=== PATIENT | male | born 1965 | race Caucasian/White ===

== ENCOUNTER 2017-01-31 10:41 | Emergency (ER) | payer MEDICARE, OTHER ==
[~2017-01-31] VITALS: Ht 188 cm; Wt 148.0 kg
[2017-01-31 10:43] VITALS: BP 166/98
[2017-01-31] MEDS ORDERED: LIDOCAINE 1%, 20ML ONE (11:37)
[2017-01-31] MEDS ORDERED: HYDROcodone/APAP 5/325 TABLET ONE (11:59)
[2017-01-31] MEDS ORDERED: HYDROcodone/APAP 5/325 TABLET PO ONE (12:00)
[2017-01-31] MEDS ORDERED: LIDOCAINE 1%, 20ML SQ ONE (12:00)
== END 2017-01-31 12:29 | disposition home or self-care (01) ==
LOC: ED 12:18
DX: L02.412 Cutaneous abscess of left axilla (principal); F12.10 Cannabis abuse, uncomplicated
CPT/HCPCS: 10060; 99283; J3490

== ENCOUNTER 2017-02-02 09:45 | Emergency (ER) | payer OTHER ==
[~2017-02-02] VITALS: Ht 188 cm; Wt 151.0 kg
[2017-02-02 09:56] VITALS: BP 122/86
== END 2017-02-02 10:35 | disposition home or self-care (01) ==
LOC: ED 10:29
DX: L02.412 Cutaneous abscess of left axilla (principal); F17.210 Nicotine dependence, cigarettes, uncomplicated
CPT/HCPCS: 99281

== ENCOUNTER 2017-06-28 16:09 | Inpatient (IN) | payer MEDICARE, OTHER ==
[~2017-06-28] VITALS: Ht 188 cm; Wt 159.0 kg
[2017-06-28] MEDS ORDERED: SODIUM CHLORIDE FLUSH 10ML SYR IVF ONE (16:30)
[2017-06-28 16:49] LABS: HEMATOCRIT 49.4 % (39.2-51.8); HEMOGLOBIN 16.6 g/dL (13.7-18.0)
[2017-06-28 16:58] LABS: ASPARTATE AMINO TRANSFERASE 15 U/L (15-37); BLOOD UREA NITROGEN 13 mg/dL (7-18)
[2017-06-28] MEDS ORDERED: CEFTRIAXONE PMX 1GM/50ML 50 ML ONE (17:00)
[2017-06-28] MEDS ORDERED: CEFTRIAXONE PMX 1GM/50ML 50 ML IV ONE (17:00)
[2017-06-28] MEDS ORDERED: AZITHROMYCIN 500 MG in SODIUM CHLORIDE 0.9% 250 ML IV ONE (17:00)
[2017-06-28 17:07] LABS: DIFF TOTAL CELLS COUNTED 100 CELL DIFF
[2017-06-28 17:09] LABS: VERIFY COUNTS? YES
[2017-06-28 17:20] LABS: ABG COLLECTION SITE RIGHT RADIAL
[2017-06-28 17:21] LABS: COLLATERAL CIRCULATION TESTING NORMAL
[2017-06-28] MEDS ORDERED: ALBUTEROL/IPRATROPIUM 2.5MG/0.5MG, 3 ML NPPB ONE (17:30)
[2017-06-28] MEDS ORDERED: ALBUTEROL/IPRATROPIUM 2.5MG/0.5MG, 3 ML ONE (17:31)
[2017-06-28] MEDS ORDERED: morphine SULFATE 10 MG/ML, 1ML ONE (18:38)
[2017-06-28 19:28] LABS: ABG COLLECTION SITE LEFT RADIAL
[2017-06-28 19:29] LABS: COLLATERAL CIRCULATION TESTING NORMAL
[2017-06-28] MEDS ORDERED: ONDANSETRON 2MG/ML, 2ML IVPush PRN (19:30)
[2017-06-28] MEDS ORDERED: morphine SULFATE 10 MG/ML, 1ML IVPush PRN (19:30)
[2017-06-28] MEDS ORDERED: ALBUTEROL/IPRATROPIUM 2.5MG/0.5MG, 3 ML NPPB PRN (20:00)
[2017-06-28] MEDS ORDERED: ENOXAPARIN 40 MG/0.4 ML SQ SCH (20:00)
[2017-06-28 20:16] LABS: IS PT STATUS REG ER OR PRE ER? NO
[2017-06-28 23:12] VITALS: BP 123/84
[2017-06-29] MEDS ORDERED: SODIUM CHLORIDE 0.9% 1,000 ML IV SCH
[2017-06-29 01:34] LABS: IS PT STATUS REG ER OR PRE ER? NO
[2017-06-29 02:07] LABS: RAPID INFLUENZA A Negative (Negative); RAPID INFLUENZA B Negative (Negative)
[2017-06-29 04:00] VITALS: BP 115/71
[2017-06-29 04:23] LABS: ABG COLLECTION SITE RIGHT RADIAL; COLLATERAL CIRCULATION TESTING NORMAL
[2017-06-29 04:24] LABS: HEMATOCRIT 48.6 % (39.2-51.8); HEMOGLOBIN 16.3 g/dL (13.7-18.0); WHITE BLOOD COUNT 26.8 x10^3/uL (3.4-10)
[2017-06-29 04:35] LABS: ASPARTATE AMINO TRANSFERASE 13 U/L (15-37); BLOOD UREA NITROGEN 18 mg/dL (7-18)
[2017-06-29 04:49] LABS: DIFF TOTAL CELLS COUNTED 100 CELL DIFF
[2017-06-29 04:56] LABS: VERIFY COUNTS? YES
[2017-06-29 04:57] LABS: LARGE PLATELETS 1+
[2017-06-29 13:23] VITALS: BP 114/70
[2017-06-29] MEDS: CEFTRIAXONE PMX 1GM/50ML 50 ML IV SCH (16:17)
[2017-06-29] MEDS: AZITHROMYCIN 500 MG in SODIUM CHLORIDE 0.9% 250 ML IV SCH (16:58)
[2017-06-29 18:39] VITALS: BP 124/81
[2017-06-29] MEDS: ENOXAPARIN 40 MG/0.4 ML SQ SCH (22:08)
[2017-06-30 01:23] VITALS: BP 129/89
[2017-06-30 05:38] LABS: HEMOGLOBIN 16.7 g/dL (13.7-18.0); WHITE BLOOD COUNT 16.8 x10^3/uL (3.4-10)
[2017-06-30 06:01] LABS: ASPARTATE AMINO TRANSFERASE 13 U/L (15-37); BLOOD UREA NITROGEN 15 mg/dL (7-18)
[2017-06-30 06:16] LABS: DIFF TOTAL CELLS COUNTED 100 CELL DIFF
[2017-06-30 06:18] LABS: VERIFY COUNTS? YES
[2017-06-30 08:05] VITALS: BP 131/86
[2017-06-30 16:30] VITALS: BP 148/92
[2017-06-30] MEDS: CEFTRIAXONE PMX 1GM/50ML 50 ML IV SCH (17:14)
[2017-06-30] MEDS: AZITHROMYCIN 500 MG in SODIUM CHLORIDE 0.9% 250 ML IV SCH (17:57)
[2017-06-30 18:43] VITALS: BP 132/81
[2017-06-30] MEDS: ENOXAPARIN 40 MG/0.4 ML SQ SCH (21:00)
[2017-07-01 01:37] VITALS: BP 126/78
[2017-07-01 07:40] LABS: WHITE BLOOD COUNT 11.9 x10^3/uL (3.4-10)
[2017-07-01 07:48] VITALS: BP 131/85
[2017-07-01 12:48] VITALS: BP 145/83
[2017-07-01] MEDS ORDERED: IPRA4AER INH (14:00)
[2017-07-01] MEDS ORDERED: CEFD300C37 PO (14:00)
== END 2017-07-01 14:55 | disposition home or self-care (01) | DRG 871 ==
LOC: ED 18:19 → EDIP 18:44 → CCU 19:50 → 4WST 06-29 13:10
PROVIDERS: ADMIT Internal Medicine; ATTEND Family Medicine
PROC: 5A09357 Assistance with Respiratory Ventilation, Less than 24 Consecutive Hours, Continuous Positive Airway Pressure (ICD-10-PCS; principal; 2017-07-01)
DX: A41.9 Sepsis, unspecified organism (principal); G93.41 Metabolic encephalopathy; J96.01 Acute respiratory failure with hypoxia; J18.9 Pneumonia, unspecified organism; Z68.42 Body mass index [BMI] 45.0-49.9, adult; E66.9 Obesity, unspecified; F12.90 Cannabis use, unspecified, uncomplicated; F17.200 Nicotine dependence, unspecified, uncomplicated; G47.33 Obstructive sleep apnea (adult) (pediatric); M19.90 Unspecified osteoarthritis, unspecified site; Z99.81 Dependence on supplemental oxygen; Z72.89 Other problems related to lifestyle
CPT/HCPCS: 36415; 36600; 71010; 80053; 82803; 83605; 83735; 84100; 84145; 84443; 84484; 85025; 85610; 87040; 87081; 87400; 93005; 94640; 94660; 96365; 96366; 96367; 96372; C8929; J0456; J0696; J1650; J7620; J7030; J7050

== ENCOUNTER 2019-09-23 08:49 | Outpatient (CLI) | payer MEDICARE ==
[~2019-09-23 08:49] MED LIST: AMOX1TAB64 PO; CEFD300C37 PO; IBUP-1222 PO; INSU100I11 SQ-INSULIN; INSU100I13 SQ-INSULIN; IPRA4AER INH; LACT1TAB13 PO; METF500T PO; MULT1TAB60 PO; NYST15PO2 TP
== END 2019-09-23 23:59 | disposition home or self-care (01) ==
LOC: WOUND 08:49
PROVIDERS: ATTEND Internal Medicine
DX: T81.89XD Other complications of procedures, not elsewhere classified, subsequent encounter (principal); L02.416 Cutaneous abscess of left lower limb; E11.9 Type 2 diabetes mellitus without complications; G47.30 Sleep apnea, unspecified; E66.01 Morbid (severe) obesity due to excess calories; Y83.8 Other surgical procedures as the cause of abnormal reaction of the patient, or of later complication, without mention of misadventure at the time of the procedure
CPT/HCPCS: 11042; G0463

== ENCOUNTER 2019-09-25 08:40 | Outpatient (CLI) | payer MEDICARE | END 2019-09-25 23:59 | disposition home or self-care (01) | LOC: WOUND 08:40 | PROVIDERS: ATTEND Internal Medicine | DX: T81.89XA Other complications of procedures, not elsewhere classified, initial encounter (principal); L02.416 Cutaneous abscess of left lower limb; E11.9 Type 2 diabetes mellitus without complications; G47.30 Sleep apnea, unspecified; E66.01 Morbid (severe) obesity due to excess calories; Y83.8 Other surgical procedures as the cause of abnormal reaction of the patient, or of later complication, without mention of misadventure at the time of the procedure; Y92.89 Other specified places as the place of occurrence of the external cause | CPT/HCPCS: G0463 ==

== ENCOUNTER 2019-09-30 11:05 | Outpatient (CLI) | payer MEDICARE | END 2019-09-30 23:59 | disposition home or self-care (01) | LOC: WOUND 11:05 | PROVIDERS: ATTEND Internal Medicine | DX: T81.89XD Other complications of procedures, not elsewhere classified, subsequent encounter (principal); L02.416 Cutaneous abscess of left lower limb; G47.30 Sleep apnea, unspecified; E66.01 Morbid (severe) obesity due to excess calories; E11.65 Type 2 diabetes mellitus with hyperglycemia; F17.200 Nicotine dependence, unspecified, uncomplicated; Z68.41 Body mass index [BMI] 40.0-44.9, adult; Y83.8 Other surgical procedures as the cause of abnormal reaction of the patient, or of later complication, without mention of misadventure at the time of the procedure | CPT/HCPCS: 97602 ==